=== PATIENT | female | born 1950 | race American Indian/Alaskan Native ===

== ENCOUNTER 2018-11-08 12:01 | Inpatient (IN) | payer MEDICARE ==
[2018-11-08 12:07] VITALS: BMI 26.4
[2018-11-08] MEDS ORDERED: Vancomycin 1 gm/NS 200 ml 1 GM/200 ML BAG IVPB STA (12:35)
[2018-11-08] MEDS ORDERED: Clindamycin 300 MG in Sodium Chloride 0.9% 50 ML IVPB STA (12:40)
[2018-11-08] MEDS ORDERED: Dexamethasone 10 MG in Sodium Chloride 0.9% 50 ML IV ONE (12:44)
[2018-11-08 13:07] LABS: BASO # 0.1 K/uL (0.0-0.2); BASO % 1.1 % (0.0-2.0); EOS % 0.1 % (0.0-4.0); HEMOGLOBIN 12.7 g/dL (11.0-16.0); LYMPH # 1.4 K/uL (1.0-4.3); LYMPH % 14.7 % (20.0-40.0); MEAN CELL VOLUME 86.3 fL (81.0-99.0); MEAN CORPUSCULAR HEMOGLOBIN 29.3 pg (27.0-31.0); MEAN CORPUSCULAR HGB CONC 33.9 g/dL (33.0-37.0); MEAN PLATELET VOLUME 8.1 fL (7.2-11.7); MONO # 1.1 K/uL (0.0-0.8); MONO % 11.1 % (0.0-10.0); NEUT # 7.2 K/uL (1.8-7.0); RBC 4.34 Mil/uL (3.80-5.20); RED CELL DISTRIBUTION WIDTH 14.9 % (11.5-14.5); WHITE BLOOD COUNT 9.8 K/uL (4.8-10.8)
[2018-11-08 13:09] LABS: ALB/GLOB RATIO 1.1 (1.0-2.1); ALBUMIN 4.1 g/dL (3.5-5.0); ALT/SGPT < 6 U/L (9-52); AST/SGOT 20 U/L (14-36); BLOOD UREA NITROGEN 12 mg/dL (7-17); CALCIUM 10.2 mg/dl (8.6-10.4); GFR NON-AFRICAN AMERICAN > 60
[2018-11-08 13:11] LABS: VENOUS BLOOD GAS BASE EXCESS 2.1 mmol/L (0.0-2.0); VENOUS BLOOD GAS PCO2 52 mmHg (40-60); VENOUS BLOOD GAS PO2 19 mm/Hg (30-55); VENOUS BLOOD PH 7.35 (7.32-7.43)
[2018-11-08] MEDS ORDERED: Sodium Chloride 0.9% 1,000 ML IV ONE (13:35)
--- NOTE | 2018-11-08 14:04 | C.PDOC ---
History Of Present Illness 68 year old female, who has recently been diagnosed with diabetes, is sent to the ED by [facility] for evaluation of peritonsillar abscess. Patient states she has been having a sore throat for five. At [facility], patient underwent a strep test, which was positive for Strep A. She was also noted to have a deviated uvula and has been sent to the ED for further evaluation. Upon ED arrival, patient is afebrile and has unremarkable vital signs. Patient is also complaining of pain to her left lower jaw. Otherwis,e she denies fever, chills, nausea, vomiting or any other complaints at this time. Time Seen by Provider: 11/08/18 12:31 Chief Complaint (Nursing): ENT Problem History Per: Patient History/Exam Limitations: None Onset/Duration Of Symptoms: Days (5) Current Symptoms Are (Timing): Still Present Past Medical History Reviewed: Historical Data, Nursing Documentation, Vital Signs Vital Signs: Last Vital Signs Temp 100 F H 11/08/18 13:45 Pulse 80 11/08/18 13:45 Resp 18 11/08/18 13:45 BP 121/65 11/08/18 13:45 Pulse Ox 100 11/08/18 13:45 - Medical History PMH: No Chronic Diseases Surgical History: No Surg Hx - [facility] Procedures CUL-DE-SAC OPERATION NEC (02/26/98) INCIS HERNIA REPAIR-GRFT (02/26/98) OTH LYSIS-PERITONEAL ADHES (02/26/98) OTHER APPENDECTOMY (02/26/98) TOTAL ABD HYSTERECTOMY (02/26/98) Family History: States: Unknown Family Hx - Social History Hx Alcohol Use: Yes Hx Substance Use: No - Immunization History Hx Tetanus Toxoid Vaccination: No Hx Influenza Vaccination: No Hx Pneumococcal Vaccination: No Review Of Systems Constitutional: Negative for: Fever, Chills ENT: Positive for: Throat Pain, Other (peritonsillar absces, deviated uvula, left lower jaw pain ) Gastrointestinal: Negative for: Nausea, Vomiting Physical Exam - Physical Exam Appears: Non-toxic, No Acute Distress Skin: Normal Color, Warm, Dry Head: Swelling (significant to left tonillar region ) Oral Mucosa: Moist Throat: Other (deviated uvula, hoarse voice ) Neck: Supple Chest: Symmetrical, No Deformity, No Tenderness Cardiovascular: Rhythm Regular, No Murmur Respiratory: Normal Breath Sounds, No Rales, No Rhonchi, No Wheezing Gastrointestinal/Abdominal: Soft, No Tenderness Extremity: Normal ROM Neurological/Psych: Oriented x3, Normal Speech, Normal Cognition ED Course And Treatment - Laboratory Results Result Diagrams: 11/08/18 12:49 11/08/18 12:49 Lab Results: pO2 19 mm/Hg (30-55) L 11/08/18 13:07 VBG pH 7.35 (7.32-7.43) 11/08/18 13:07 VBG pCO2 52 mmHg (40-60) 11/08/18 13:07 VBG HCO3 24.6 mmol/L 11/08/18 13:07 VBG Total CO2 30.3 mmol/L (22-28) H 11/08/18 13:07 VBG O2 Sat (Calc) 31.7 % (40-65) L 11/08/18 13:07 VBG Base Excess 2.1 mmol/L (0.0-2.0) H 11/08/18 13:07 VBG Potassium 4.4 mmol/L (3.6-5.2) 11/08/18 13:07 Sodium 138.0 mmol/l (132-148) 11/08/18 13:07 Chloride 101.0 mmol/L (98-107) 11/08/18 13:07 Glucose 271 mg/dl (65-105) H 11/08/18 13:07 Lactate 3.2 mmol/L (0.7-2.1) H 11/08/18 13:07 Total Bilirubin 0.8 mg/dL (0.2-1.3) 11/08/18 12:49 AST 20 U/L (14-36) 11/08/18 12:49 ALT < 6 U/L (9-52) L 11/08/18 12:49 Alkaline Phosphatase 89 U/L (38-126) 11/08/18 12:49 Total Protein 8.0 g/dL (6.3-8.3) 11/08/18 12:49 Albumin 4.1 g/dL (3.5-5.0) 11/08/18 12:49 Globulin 3.8 gm/dL (2.2-3.9) 11/08/18 12:49 Albumin/Globulin Ratio 1.1 (1.0-2.1) 11/08/18 12:49 O2 Sat by Pulse Oximetry: 100 - CT Scan/US CT Neck soft tissue Other Rad Studies (CT/US): Read By Radiologist, Radiology Report Reviewed CT/US Interpretation: Date of service: 11/08/2018. PROCEDURE: CT NECK WITH CONTRAST. HISTORY: left peritonsilar abscess. COMPARISON: None available. TECHNIQUE: CT of the neck with intravenous contrast. Coronal and sagittal reformats generated. Intravenous contrast dose: 100 mL Visipaque 320. Radiation dose: Total exam DLP = 541.9 mGy-cm. This CT exam was performed using one or more of the following dose reduction techniques: Automated exposure control, adjustment of the mA and/or kV according to patient size, and/or use of iterative reconstruction technique. FINDINGS: NASOPHARYNX: Asymmetric soft tissue fullness of the left nasopharynx with nonvisualization of the left eustachian tube. No enhancing mucosal lesion appreciated. SUPRAHYOID NECK: Marked fullness of the left palatine tonsil with heterogeneous attenuation but no evidence of discrete abscess. No significant surrounding inflammatory change. Differential diagnosis includes neoplasm or tonsillitis. There is mild displacement of the airway towards the right side as result of this left palatine soft tissue fullness. The lingual tonsils appear unremarkable. There is no abnormality of the adenoidal tonsils. Intrinsic muscles of the tongue are symmetric. The epiglottis is normal in appearance. INFRAHYOID NECK: Unremarkable larynx, hypopharynx, and supraglottic space. Vocal cords intact. MASS: None. GLANDS: Parotid and submandibular glands unremarkable. Normal size thyroid gland, without nodule. LYMPH NODES: Numerous shotty left-sided cervical nodes, particularly along the jugulodigastric chain, without evidence of shila enlargement of lymph nodes. There are few shotty right-sided nodes as well. CERVICAL SPINE: No fracture or focal lesion. VASCULAR STRUCTURES: Unremarkable. OTHER FINDINGS: There is an air-fluid level in left maxillary antrum which may reflect acute sinusitis. There is chronic ethmoid and bilateral maxillary sinusitis. IMPRESSION: Soft tissue fullness of the left palatine tonsil without evidence of abscess. Differential diagnosis includes neoplasm or tonsillitis. Asymmetric shotty left-sided cervical lymphadenopathy. Possible acute left maxillary sinusitis. Chronic ethmoid and bilateral maxillary sinusitis. Soft tissue fullness of left nasopharynx without enhancing mucosal lesion demonstrated. Correlate with direct visual inspection. Medical Decision Making Medical Decision Making: Progress: Bloodwork and CT Neck Soft Tissue ordered and reviewed. Clindamycin IVPB, Vancomycin IVP, Decadron IVP given. Patient with lactate of 3.5, has already received antibiotics Patient does not meet SIRS criteria. IV Fluids given. Case discussed with Dr. Marlow (medicine independent crop consultant), who accepts the patient. Case discussed with medical safety director who will evaluate the patient. Case discussed with Dr. Sampson as consult, and states he will evaluate the patient at bedside. Dr. Sampson eval the patient at bedside. Attempted aspiration of the suspected abscess with no drainage. Disposition Discussed With Dr.: Gabo Marlow Jr. - Disposition Disposition: HOSPITALIZED Disposition Time: 16:44 Condition: GUARDED - POA Present On Arrival: None - Clinical Impression Clinical Impression: Tonsillar mass - Scribe Statement The provider has reviewed the documentation as recorded by the Scribe (Crystal Barney) Provider Attestation: All medical record entries made by the Scribe were at my direction and personally dictated by me. I have reviewed the chart and agree that the record accurately reflects my personal performance of the history, physical exam, medical decision making, and the department course for this patient. I have also personally directed, reviewed, and agree with the discharge instructions and disposition. Decision To Admit - Pt Status Changed To: Hospital Disposition Of: Inpatient - Admit Certification Admit to Inpatient:: After my assessment, the patient will require hospitalization for at least two midnights. This is because of the severity of symptoms shown, intensity of services needed, and/or the medical risk in this patient being treated as an outpatient. - InPatient: Physician Admission Certification: I certify that this patient requires 2 or more midnights of care for the following reason:: tonsillar mass, tonsillitis, possible airway impingement - . Bed Request Type: Regular Admitting Physician: Gabo Marlow Jr. Patient Diagnosis: Tonsillar mass
[2018-11-08] MEDS ORDERED: Iohexol 350mg/ml 100 ML ONE (14:08)
[2018-11-08 15:31] LABS: VENOUS BLOOD GAS BASE EXCESS 3.5 mmol/L (0.0-2.0); VENOUS BLOOD GAS PCO2 47 mmHg (40-60); VENOUS BLOOD GAS PO2 16 mm/Hg (30-55)
--- NOTE | 2018-11-08 16:34 | CT ---
Date of service: 11/08/2018 PROCEDURE: CT NECK WITH CONTRAST HISTORY: left peritonsilar abscess COMPARISON: None available. TECHNIQUE: CT of the neck with intravenous contrast. Coronal and sagittal reformats generated. Intravenous contrast dose: 100 mL Visipaque 320 Radiation dose: Total exam DLP = 541.9 mGy-cm. This CT exam was performed using one or more of the following dose reduction techniques: Automated exposure control, adjustment of the mA and/or kV according to patient size, and/or use of iterative reconstruction technique. FINDINGS: NASOPHARYNX: Asymmetric soft tissue fullness of the left nasopharynx with nonvisualization of the left eustachian tube. No enhancing mucosal lesion appreciated. SUPRAHYOID NECK: Marked fullness of the left palatine tonsil with heterogeneous attenuation but no evidence of discrete abscess. No significant surrounding inflammatory change. Differential diagnosis includes neoplasm or tonsillitis. There is mild displacement of the airway towards the right side as result of this left palatine soft tissue fullness. The lingual tonsils appear unremarkable. There is no abnormality of the adenoidal tonsils. Intrinsic muscles of the tongue are symmetric. The epiglottis is normal in appearance. INFRAHYOID NECK: Unremarkable larynx, hypopharynx, and supraglottic space. Vocal cords intact. MASS: None. GLANDS: Parotid and submandibular glands unremarkable. Normal size thyroid gland, without nodule. LYMPH NODES: Numerous shotty left-sided cervical nodes, particularly along the jugulodigastric chain, without evidence of shila enlargement of lymph nodes. There are few shotty right-sided nodes as well. CERVICAL SPINE: No fracture or focal lesion. VASCULAR STRUCTURES: Unremarkable. OTHER FINDINGS: There is an air-fluid level in left maxillary antrum which may reflect acute sinusitis. There is chronic ethmoid and bilateral maxillary sinusitis. IMPRESSION: Soft tissue fullness of the left palatine tonsil without evidence of abscess. Differential diagnosis includes neoplasm or tonsillitis. Asymmetric shotty left-sided cervical lymphadenopathy. Possible acute left maxillary sinusitis. Chronic ethmoid and bilateral maxillary sinusitis. Soft tissue fullness of left nasopharynx without enhancing mucosal lesion demonstrated. Correlate with direct visual inspection.
[2018-11-08] MEDS ORDERED: Lidocaine 2% w Epi 1:100,000 Inj IJ ONE (17:13)
--- NOTE | 2018-11-08 18:56 | CP.PCM.HP ---
History of Present Illness - History of Present Illness History of Present Illness: Ms. Villagomez is a 68 year old female with a PMHx of Diabetes and Right Hip Arthritis who was sent by Urgent care for evaluation of possible peritonsillar abscess. Patient states she had a sore throat which prompted her to go to urgent care. Rapid Strep returned positive and she was sent to the E.R for evaluation. She has been only using salt water and mucinex to treat her sore throat. Associated symptoms include Subjective Fever, Tinnitus, SOB, Body Aches, productive cough and chest congestion. Patient was evaluated by ENT in the ED and and I & D was attempted but there was no abscess to drain. ROS POSITIVES: Sore throat, Odynophagia, Dysphagia, Subjective Fever, Tinnitus, SOB, Body Aches, productive cough, chest congestion, sick contacts. NEGATIVES: Chills, Headache, Chest pain, palpitations, nausea, vomiting, abdominal pain, changes in bowel habits, urinary symptoms. PMHx: Diabetes, Righ Hip Arthritis PSHx: x 4, Hysterectomy, Unspecified Hernia Repair Allergies: NKDA SocialHx: Denies tobacco, Social EtoH Use, Denies illicit drug use Hos: Denies FamHx: Mom/Brother - Diabetes Meds: Metformin 1000 BID, Lisinopril 2.5 Present on Admission - Present on Admission Any Indicators Present on Admission: No Review of Systems - Review of Systems All systems: reviewed and no additional remarkable complaints except (As per HPI) Review of Systems: As per HPI Past Patient History - Past Social History Smoking Status: Never Smoked - ENDOCRINE/METABOLIC Hx Endocrine Disorders: Yes Hx Diabetes Mellitus Type 2: Yes - PSYCHIATRIC Hx Substance Use: No - SURGICAL HISTORY Hx Surgeries: Yes Hx Section: Yes (x4) Hx Hysterectomy: Yes - ANESTHESIA Hx Anesthesia: Yes Meds Allergies/Adverse Reactions: Allergies Allergy/AdvReac Type Severity Reaction Status Date / Time No Known Allergies Allergy Verified 11/08/18 12:06 Physical Exam - Constitutional Appears: Well, Non-toxic, No Acute Distress - Head Exam Head Exam: ATRAUMATIC, NORMAL INSPECTION, NORMOCEPHALIC - Eye Exam Eye Exam: EOMI, Normal appearance - ENT Exam ENT Exam: Mucous Membranes Moist, TM's Normal Bilaterally. absent: Normal Oropharynx Additional comments: Tonsillar Swelling, ERythema, Deviated Uvula, mild exudate, mild hoarsness. - Neck Exam Neck exam: Positive for: Lymphadenopathy (Anterior, Tender on Left SIde. ) - Respiratory Exam Respiratory Exam: Clear to Auscultation Bilateral. absent: Accessory Muscle Use - Cardiovascular Exam Cardiovascular Exam: RRR, +S1, +S2. absent: JVD - GI/Abdominal Exam GI & Abdominal Exam: Normal Bowel Sounds, Soft. absent: Tenderness - Extremities Exam Extremities exam: Positive for: normal capillary refill. Negative for: pedal edema - Neurological Exam Neurological exam: Alert, Oriented x3 - Psychiatric Exam Psychiatric exam: Normal Affect, Normal Mood Results - Vital Signs Recent Vital Signs: Last Vital Signs Temp 99.1 F 11/08/18 18:13 Pulse 85 11/08/18 18:13 Resp 16 11/08/18 18:13 BP 164/93 H 11/08/18 18:13 Pulse Ox 96 11/08/18 18:13 - Labs Result Diagrams: 11/08/18 12:49 11/08/18 12:49 Labs: Laboratory Results - last 24 hr 11/08/18 11/08/18 11/08/18 12:49 12:49 13:07 WBC 9.8 RBC 4.34 Hgb 12.7 Hct 37.5 MCV 86.3 MCH 29.3 MCHC 33.9 RDW 14.9 H Plt Count 278 MPV 8.1 Neut % (Auto) 73.0 Lymph % (Auto) 14.7 L Baldwin % (Auto) 11.1 H Eos % (Auto) 0.1 Baso % (Auto) 1.1 Neut # (Auto) 7.2 H Lymph # (Auto) 1.4 Baldwin # (Auto) 1.1 H Eos # (Auto) 0.0 Baso # (Auto) 0.1 pO2 19 L VBG pH 7.35 VBG pCO2 52 VBG HCO3 24.6 VBG Total CO2 30.3 H VBG O2 Sat (Calc) 31.7 L VBG Base Excess 2.1 H VBG Potassium 4.4 Glucose 271 H Lactate 3.2 H Sodium 136 138.0 Potassium 4.6 Chloride 99 101.0 Carbon Dioxide 29 Anion Gap 13 BUN 12 Creatinine 0.8 Est GFR ( Amer) > 60 Est GFR (Non-Af Amer) > 60 Random Glucose 334 H Calcium 10.2 Total Bilirubin 0.8 AST 20 ALT < 6 L Alkaline Phosphatase 89 Total Protein 8.0 Albumin 4.1 Globulin 3.8 Albumin/Globulin Ratio 1.1 Venous Blood Potassium 4.4 11/08/18 15:25 WBC RBC Hgb Hct MCV MCH MCHC RDW Plt Count MPV Neut % (Auto) Lymph % (Auto) Baldwin % (Auto) Eos % (Auto) Baso % (Auto) Neut # (Auto) Lymph # (Auto) Baldwin # (Auto) Eos # (Auto) Baso # (Auto) pO2 16 L VBG pH 7.40 VBG pCO2 47 VBG HCO3 25.6 VBG Total CO2 30.5 H VBG O2 Sat (Calc) 26.8 L VBG Base Excess 3.5 H VBG Potassium 4.0 Glucose 255 H Lactate 1.5 Sodium 136.0 Potassium Chloride 103.0 Carbon Dioxide Anion Gap BUN Creatinine Est GFR ( Amer) Est GFR (Non-Af Amer) Random Glucose Calcium Total Bilirubin AST ALT Alkaline Phosphatase Total Protein Albumin Globulin Albumin/Globulin Ratio Venous Blood Potassium 4.0 Assessment & Plan - Assessment and Plan (Free Text) Assessment: 68 year old female with a PMHx of Diabetes and Right Hip Arthritis admitted for evaluation and treatment of strep throat and possible peritonsillar abscess. Plan: Strep Throat CT Neck Soft Tissue(Adm): Soft tissue fullness of the left palatine tonsil without evidence of abscess. Differential diagnosis includes neoplasm or tonsillitis. Asymmetric shotty left-sided cervical lymphadenopathy. Possible acute left maxillary sinusitis. Chronic ethmoid and bilateral maxillary sinusitis. Soft tissue fullness of left nasopharynx without enhancing mucosal lesion demonstrated. Correlate with direct visual inspection. Consults: ENT (Dr. Sampson), Recs Appreciated Throat Culture: Ordered and PENDING> Mgmt: Clindamycin 300mg IVP Q6H Vancomycin 1gram IVP Q6H. Robitussin PRN for Cough Tylenol PRN for Fever. Diabetes (Chronic) Mgmt: Metformin 1000mg BID Lisinopril 2.5mg PO Daily Elevated BP Amlodipine 5 PO ONce Patient does not have a history of hypertension. Her lisinopril is for kidney protection Monitor BP Proph SCDs Lovenox if patient states for more than 24 hours NS # 100mls/hr Modified Dysphagia Diet Patient discussed with Attending Dr. Marlow. Garcia Oswald, PGY-2
[2018-11-08 19:20] VITALS: RESP 20
[2018-11-08] MEDS ORDERED: guaiFENesin DM 200 mg-20 mg/10 ml UD PO PRN (19:31)
[2018-11-08] MEDS: Clindamycin 300 MG in Sodium Chloride 0.9% 50 ML IVPB SCH (19:47)
[2018-11-08] MEDS: Sodium Chloride 0.9% 1,000 ML IV SCH (19:47)
[2018-11-08] MEDS ORDERED: Dextrose 50% SYRINGE Inj (50 ml) IV PRN (21:19)
[2018-11-08] MEDS ORDERED: Glucagon Recombinant 1 mg Inj IM PRN (21:19)
[2018-11-08] MEDS: (Novolog) Insulin Aspart, Recombinant 100 u/ml 10 ml vial SC SCH (21:40)
[2018-11-09] MEDS: Clindamycin 300 MG in Sodium Chloride 0.9% 50 ML IVPB SCH ×4 (00:30→18:07)
--- NOTE | 2018-11-09 01:58 | OP ---
PROCEDURE DATE: 11/08/2018 PREOPERATIVE DIAGNOSIS: Possible peritonsillar abscess. POSTOPERATIVE DIAGNOSIS: Possible peritonsillar abscess. PROCEDURE: Left peritonsillar exploration. SIGNIFICANT FINDINGS: No pus noted. DESCRIPTION OF PROCEDURE: The patient was placed in a seated position. The left peritonsillar area was injected with lidocaine with epinephrine. An incision was made to the left peritonsillar area using a #11 blade, clamped, dissection was done. The left peritonsillar area was opened up; however, no pus was noted. Bleeding was controlled with time. The patient tolerated the procedure well. Harpreet Sampson MD
[2018-11-09 07:32] LABS: BASO # 0.1 K/uL (0.0-0.2); BASO % 0.5 % (0.0-2.0); HEMOGLOBIN 11.7 g/dL (11.0-16.0); LYMPH # 1.4 K/uL (1.0-4.3); LYMPH % 10.8 % (20.0-40.0); MEAN CELL VOLUME 86.2 fL (81.0-99.0); MEAN CORPUSCULAR HEMOGLOBIN 29.2 pg (27.0-31.0); MEAN CORPUSCULAR HGB CONC 33.9 g/dL (33.0-37.0); MEAN PLATELET VOLUME 8.3 fL (7.2-11.7); MONO # 1.1 K/uL (0.0-0.8); MONO % 8.2 % (0.0-10.0); NEUT # 10.4 K/uL (1.8-7.0); NEUT % 80.5 % (50.0-75.0); NRBC % 0.1 % (0.0-2.0); RBC 3.99 Mil/uL (3.80-5.20); RED CELL DISTRIBUTION WIDTH 14.9 % (11.5-14.5); WHITE BLOOD COUNT 12.9 K/uL (4.8-10.8)
[2018-11-09] MEDS: (Novolog) Insulin Aspart, Recombinant 100 u/ml 10 ml vial SC SCH ×4 (08:31→21:47)
[2018-11-09 08:56] LABS: ALB/GLOB RATIO 1.1 (1.0-2.1); ALBUMIN 4.1 g/dL (3.5-5.0); ALT/SGPT < 6 U/L (9-52); AST/SGOT 19 U/L (14-36); BLOOD UREA NITROGEN 11 mg/dL (7-17); CALCIUM 9.5 mg/dl (8.6-10.4); GFR NON-AFRICAN AMERICAN > 60
[2018-11-09] MEDS: Sodium Chloride 0.9% 1,000 ML IV SCH ×3 (10:34→22:15)
[2018-11-09] MEDS: Vancomycin 1 gm/NS 200 ml 1 GM/200 ML BAG IVPB SCH (10:35)
--- NOTE | 2018-11-09 14:15 | CP.PCM.PN ---
Subjective - Date & Time of Evaluation Date of Evaluation: 11/09/18 Time of Evaluation: 14:14 - Subjective Subjective: decreased throat pain on the right oc/op: erythema and edema of right peritonsillar area, incision healing well a/p: peritonsillar cellulitis cont iv abx Objective - Vital Signs/Intake and Output Vital Signs (last 24 hours): Temp Pulse Resp BP Pulse Ox 99.8 F H 98 H 20 134/73 97 11/09/18 08:30 11/09/18 08:30 11/09/18 08:30 11/09/18 08:30 11/09/18 08:30 Intake and Output: 11/09/18 11/09/18 06:59 18:59 Intake Total 600 1100 Balance 600 1100 - Medications Medications: Current Medications Acetaminophen (Tylenol 325mg Tab) 650 mg PO Q6 PRN PRN Reason: Fever >100.4 F Last Admin: 11/09/18 10:33 Dose: 650 mg Dextrose (Dextrose 50% Inj) 0 ml IV STAT PRN; Protocol PRN Reason: Hypoglycemia Protocol Dextrose (Glutose 15) 0 gm PO ONCE PRN; Protocol PRN Reason: Hypoglycemia Protocol Docusate Sodium (Colace) 100 mg PO BID SIL Last Admin: 11/09/18 12:06 Dose: 100 mg Glucagon (Glucagen Diagnostic Kit) 0 mg IM STAT PRN; Protocol PRN Reason: Hypoglycemia Protocol Guaifenesin/Dextromethorphan (Robitussin Dm) 10 ml PO Q4H PRN PRN Reason: Cough and congestion Heparin Sodium (Porcine) (Heparin) 5,000 units SC Q12 SIL Last Admin: 11/09/18 10:34 Dose: 5,000 units Clindamycin Phosphate 300 mg/ (Sodium Chloride) 52 mls @ 104 mls/hr IVPB Q6H SIL; Protocol Last Admin: 11/09/18 12:02 Dose: 104 mls/hr Vancomycin/Sodium Chloride (Vancomycin 1 Gm/Ns 200 Ml) 1 gm in 200 mls @ 133 mls/hr IVPB DAILY SIL; Protocol Stop: 11/14/18 10:01 Last Admin: 11/09/18 10:35 Dose: 133 mls/hr Sodium Chloride (Sodium Chloride 0.9%) 1,000 mls @ 100 mls/hr IV .Q10H SIL Last Admin: 11/09/18 10:34 Dose: 100 mls/hr Dextrose (Dextrose 5% In Water 1000 Ml) 1,000 mls @ 0 mls/hr IV .Q0M PRN; Protocol PRN Reason: Hypoglycemia Protocol Insulin Aspart (Novolog) 0 unit SC ACHS [facility]; Protocol Lisinopril (Zestril) 2.5 mg PO DAILY [facility] Last Admin: 11/09/18 10:37 Dose: 2.5 mg Metformin HCl (Glucophage) 1,000 mg PO BID [facility] Last Admin: 11/09/18 10:33 Dose: 1,000 mg - Labs Labs: 11/09/18 07:20 11/09/18 07:20
--- NOTE | 2018-11-09 18:01 | CP.PCM.PN ---
Subjective - Date & Time of Evaluation Date of Evaluation: 11/09/18 Time of Evaluation: 18:00 - Subjective Subjective: Medicine Progress Note - Dr Marlow's service Patient seen and examined at bedside. Per nursing no acute events overnight. Patient states that she is feeling better. Able to tolerate breakfast and lunch. Offers no other complaints at this time. Objective - Vital Signs/Intake and Output Vital Signs (last 24 hours): Temp Pulse Resp BP Pulse Ox 98.8 F 89 20 116/68 99 11/09/18 16:00 11/09/18 16:00 11/09/18 16:00 11/09/18 16:00 11/09/18 16:00 Intake and Output: 11/09/18 11/09/18 06:59 18:59 Intake Total 600 2430 Balance 600 2430 - Medications Medications: Current Medications Acetaminophen (Tylenol 325mg Tab) 650 mg PO Q6 PRN PRN Reason: Fever >100.4 F Last Admin: 11/09/18 10:33 Dose: 650 mg Dextrose (Dextrose 50% Inj) 0 ml IV STAT PRN; Protocol PRN Reason: Hypoglycemia Protocol Dextrose (Glutose 15) 0 gm PO ONCE PRN; Protocol PRN Reason: Hypoglycemia Protocol Docusate Sodium (Colace) 100 mg PO BID SIL Last Admin: 11/09/18 12:06 Dose: 100 mg Glucagon (Glucagen Diagnostic Kit) 0 mg IM STAT PRN; Protocol PRN Reason: Hypoglycemia Protocol Guaifenesin/Dextromethorphan (Robitussin Dm) 10 ml PO Q4H PRN PRN Reason: Cough and congestion Heparin Sodium (Porcine) (Heparin) 5,000 units SC Q12 SIL Last Admin: 11/09/18 10:34 Dose: 5,000 units Clindamycin Phosphate 300 mg/ (Sodium Chloride) 52 mls @ 104 mls/hr IVPB Q6H [facility]; Protocol Last Admin: 11/09/18 12:02 Dose: 104 mls/hr Vancomycin/Sodium Chloride (Vancomycin 1 Gm/Ns 200 Ml) 1 gm in 200 mls @ 133 mls/hr IVPB DAILY SIL; Protocol Stop: 11/14/18 10:01 Last Admin: 11/09/18 10:35 Dose: 133 mls/hr Sodium Chloride (Sodium Chloride 0.9%) 1,000 mls @ 100 mls/hr IV .Q10H SIL Last Admin: 11/09/18 10:34 Dose: 100 mls/hr Dextrose (Dextrose 5% In Water 1000 Ml) 1,000 mls @ 0 mls/hr IV .Q0M PRN; Protocol PRN Reason: Hypoglycemia Protocol Insulin Aspart (Novolog) 0 unit SC ACHS [facility]; Protocol Lisinopril (Zestril) 2.5 mg PO DAILY [facility] Last Admin: 11/09/18 10:37 Dose: 2.5 mg Metformin HCl (Glucophage) 1,000 mg PO BID [facility] Last Admin: 11/09/18 10:33 Dose: 1,000 mg - Labs Labs: 11/09/18 07:20 11/09/18 07:20 - Constitutional Appears: Non-toxic, No Acute Distress - Head Exam Head Exam: ATRAUMATIC, NORMAL INSPECTION - Eye Exam Eye Exam: EOMI, Normal appearance - ENT Exam ENT Exam: Mucous Membranes Moist - Neck Exam Neck Exam: Lymphadenopathy - Respiratory Exam Respiratory Exam: Clear to Ausculation Bilateral, NORMAL BREATHING PATTERN. absent: Rales, Rhonchi, Wheezes - Cardiovascular Exam Cardiovascular Exam: REGULAR RHYTHM, +S1, +S2 - GI/Abdominal Exam GI & Abdominal Exam: Soft. absent: Guarding, Rigid, Tenderness - Back Exam Back Exam: NORMAL INSPECTION - Neurological Exam Neurological Exam: Alert, Awake, Oriented x3 - Psychiatric Exam Psychiatric exam: Normal Affect, Normal Mood - Skin Skin Exam: Dry, Normal Color, Warm Assessment and Plan - Assessment and Plan (Free Text) Assessment: Patient is a 68 year old female with a PMHx of Diabetes and Right Hip Arthritis admitted for evaluation and treatment of strep throat and possible peritonsillar abscess. Plan: Peritonsillar cellulitis -Stable, afebrile -Patient is s/p peritonsillar exploration, no pus noted -Antibiotics: Clindamycin 300mg Q6H IVPB, Vancomycin 1 gm daily -Throat cultures are negative, blood cultures showing no growth x 24 hours -Robitussin PRN for Cough, Tylenol PRN for Fever. -ENT consulted, Dr Sampson, help appreciated -CT Neck Soft Tissue(Adm): Soft tissue fullness of the left palatine tonsil without evidence of abscess. Differential diagnosis includes neoplasm or tonsillitis. Asymmetric shotty left-sided cervical lymphadenopathy. Possible acute left maxillary sinusitis. Chronic ethmoid and bilateral maxillary sinusitis. Soft tissue fullness of left nasopharynx without enhancing mucosal lesion demonstrated. Correlate with direct visual inspection. (see full report Diabetes Mellitus (Chronic) -Metformin 1000mg BID -Lisinopril 2.5mg PO Daily -ISS and accuchecks ACHS -Hypoglycemia protocal Elevated Blood Pressure -Was given Amlodipine 5 PO ONce -Patient does not have a history of hypertension. Her lisinopril is for kidney protection -Monitor BP GI/DVT ppx -Heparin 5000 Q12H Plan discussed with Dr Ele Arellano DO PGY-2
[2018-11-10] MEDS: Clindamycin 300 MG in Sodium Chloride 0.9% 50 ML IVPB SCH ×3 (00:18→12:29)
[2018-11-10] MEDS: Sodium Chloride 0.9% 1,000 ML IV SCH ×2 (02:32→13:52)
[2018-11-10 08:05] LABS: BASO # 0.1 K/uL (0.0-0.2); BASO % 0.6 % (0.0-2.0); EOS % 0.1 % (0.0-4.0); HEMOGLOBIN 11.1 g/dL (11.0-16.0); LYMPH # 2.2 K/uL (1.0-4.3); LYMPH % 21.1 % (20.0-40.0); MEAN CELL VOLUME 86.5 fL (81.0-99.0); MEAN CORPUSCULAR HEMOGLOBIN 29.9 pg (27.0-31.0); MEAN CORPUSCULAR HGB CONC 34.5 g/dL (33.0-37.0); MEAN PLATELET VOLUME 8.2 fL (7.2-11.7); MONO # 0.9 K/uL (0.0-0.8); MONO % 8.5 % (0.0-10.0); NEUT # 7.2 K/uL (1.8-7.0); NEUT % 69.7 % (50.0-75.0); RBC 3.71 Mil/uL (3.80-5.20); RED CELL DISTRIBUTION WIDTH 14.7 % (11.5-14.5); WHITE BLOOD COUNT 10.3 K/uL (4.8-10.8)
[2018-11-10] MEDS: (Novolog) Insulin Aspart, Recombinant 100 u/ml 10 ml vial SC SCH ×2 (08:15→12:24)
[2018-11-10 08:26] LABS: ALBUMIN 3.7 g/dL (3.5-5.0); ALT/SGPT 11 U/L (9-52); AST/SGOT 26 U/L (14-36); BLOOD UREA NITROGEN 7 mg/dL (7-17); CALCIUM 9.3 mg/dl (8.6-10.4); GFR NON-AFRICAN AMERICAN > 60
[2018-11-10] MEDS: Vancomycin 1 gm/NS 200 ml 1 GM/200 ML BAG IVPB SCH (09:46)
--- NOTE | 2018-11-10 11:19 | CP.PCM.PN ---
Subjective - Date & Time of Evaluation Date of Evaluation: 11/10/18 Time of Evaluation: 11:18 - Subjective Subjective: Medicine Progress Note - Dr Marlow's service Patient seen and examined at bedside. Per nursing, patient has a 100.8 fever last night. Objective - Vital Signs/Intake and Output Vital Signs (last 24 hours): Temp Pulse Resp BP Pulse Ox 99.0 F 95 H 20 127/61 97 11/10/18 01:17 11/10/18 00:00 11/10/18 00:00 11/10/18 00:00 11/10/18 00:00 Intake and Output: 11/10/18 11/10/18 06:59 18:59 Intake Total 1400 1040 Balance 1400 1040 - Medications Medications: Current Medications Acetaminophen (Tylenol 325mg Tab) 650 mg PO Q6 PRN PRN Reason: Fever >100.4 F Last Admin: 11/10/18 00:17 Dose: 650 mg Dextrose (Dextrose 50% Inj) 0 ml IV STAT PRN; Protocol PRN Reason: Hypoglycemia Protocol Dextrose (Glutose 15) 0 gm PO ONCE PRN; Protocol PRN Reason: Hypoglycemia Protocol Docusate Sodium (Colace) 100 mg PO BID SIL Last Admin: 11/10/18 09:42 Dose: 100 mg Glucagon (Glucagen Diagnostic Kit) 0 mg IM STAT PRN; Protocol PRN Reason: Hypoglycemia Protocol Guaifenesin/Dextromethorphan (Robitussin Dm) 10 ml PO Q4H PRN PRN Reason: Cough and congestion Heparin Sodium (Porcine) (Heparin) 5,000 units SC Q12 SIL Last Admin: 11/10/18 09:43 Dose: 5,000 units Clindamycin Phosphate 300 mg/ (Sodium Chloride) 52 mls @ 104 mls/hr IVPB Q6H SIL; Protocol Last Admin: 11/10/18 06:06 Dose: 104 mls/hr Vancomycin/Sodium Chloride (Vancomycin 1 Gm/Ns 200 Ml) 1 gm in 200 mls @ 133 mls/hr IVPB DAILY SIL; Protocol Stop: 11/14/18 10:01 Last Admin: 11/10/18 09:46 Dose: 133 mls/hr Sodium Chloride (Sodium Chloride 0.9%) 1,000 mls @ 100 mls/hr IV .Q10H SIL Last Admin: 11/10/18 02:32 Dose: Not Given Dextrose (Dextrose 5% In Water 1000 Ml) 1,000 mls @ 0 mls/hr IV .Q0M PRN; Protocol PRN Reason: Hypoglycemia Protocol Insulin Aspart (Novolog) 0 unit SC ACHS [facility]; Protocol Last Admin: 11/10/18 08:15 Dose: 4 units Lisinopril (Zestril) 2.5 mg PO DAILY [facility] Last Admin: 11/10/18 09:43 Dose: 2.5 mg Metformin HCl (Glucophage) 1,000 mg PO BID [facility] Last Admin: 11/10/18 09:42 Dose: 1,000 mg - Labs Labs: 11/10/18 07:50 11/10/18 07:50
--- NOTE | 2018-11-10 14:23 | CP.PCM.DIS ---
Provider - Provider Date of Admission: 11/08/18 16:47 Attending physician: Gabo Marlow Jr, MD Consults: 11/08/18 16:48 Otolaryngology Consult Stat Consulting Provider: Harpreet Sampson Consulting Physician: Harpreet Sampson Reason for Consult: tonsillar mass, tonsillitis, possible airway impingement Time Spent in preparation of Discharge (in minutes): 31 Hospital Course - Lab Results Lab Results: Micro Results 11/08/18 12:55 Blood Blood Culture - Preliminary NO GROWTH AFTER 48 HOURS 11/08/18 12:35 Blood Blood Culture - Preliminary NO GROWTH AFTER 24 HOURS 11/08/18 20:17 Throat Group A Strep Throat Culture - Final NO BETA STREP GROUP A ISOLATED. Most Recent Lab Values WBC 10.3 K/uL (4.8-10.8) 11/10/18 07:50 RBC 3.71 Mil/uL (3.80-5.20) L 11/10/18 07:50 Hgb 11.1 g/dL (11.0-16.0) 11/10/18 07:50 Hct 32.1 % (34.0-47.0) L 11/10/18 07:50 MCV 86.5 fL (81.0-99.0) 11/10/18 07:50 MCH 29.9 pg (27.0-31.0) 11/10/18 07:50 MCHC 34.5 g/dL (33.0-37.0) 11/10/18 07:50 RDW 14.7 % (11.5-14.5) H 11/10/18 07:50 Plt Count 278 K/uL (130-400) 11/10/18 07:50 MPV 8.2 fL (7.2-11.7) 11/10/18 07:50 Neut % (Auto) 69.7 % (50.0-75.0) 11/10/18 07:50 Lymph % (Auto) 21.1 % (20.0-40.0) 11/10/18 07:50 [place] % (Auto) 8.5 % (0.0-10.0) 11/10/18 07:50 Eos % (Auto) 0.1 % (0.0-4.0) 11/10/18 07:50 Baso % (Auto) 0.6 % (0.0-2.0) 11/10/18 07:50 Neut # (Auto) 7.2 K/uL (1.8-7.0) H 11/10/18 07:50 Lymph # (Auto) 2.2 K/uL (1.0-4.3) 11/10/18 07:50 [place] # (Auto) 0.9 K/uL (0.0-0.8) H 11/10/18 07:50 Eos # (Auto) 0.0 K/uL (0.0-0.7) 11/10/18 07:50 Baso # (Auto) 0.1 K/uL (0.0-0.2) 11/10/18 07:50 pO2 16 mm/Hg (30-55) L 11/08/18 15:25 VBG pH 7.40 (7.32-7.43) 11/08/18 15:25 VBG pCO2 47 mmHg (40-60) 11/08/18 15:25 VBG HCO3 25.6 mmol/L 11/08/18 15:25 VBG Total CO2 30.5 mmol/L (22-28) H 11/08/18 15:25 VBG O2 Sat (Calc) 26.8 % (40-65) L 11/08/18 15:25 VBG Base Excess 3.5 mmol/L (0.0-2.0) H 11/08/18 15:25 VBG Potassium 4.0 mmol/L (3.6-5.2) 11/08/18 15:25 Sodium 136.0 mmol/l (132-148) 11/08/18 15:25 Chloride 103.0 mmol/L (98-107) 11/08/18 15:25 Glucose 255 mg/dl (65-105) H 11/08/18 15:25 Lactate 1.5 mmol/L (0.7-2.1) 11/08/18 15:25 Sodium 137 mmol/L (132-148) 11/10/18 07:50 Potassium 4.2 mmol/L (3.6-5.2) 11/10/18 07:50 Chloride 102 mmol/L (98-107) 11/10/18 07:50 Carbon Dioxide 29 mmol/L (22-30) 11/10/18 07:50 Anion Gap 9 (10-20) L 11/10/18 07:50 BUN 7 mg/dL (7-17) 11/10/18 07:50 Creatinine 0.7 mg/dL (0.7-1.2) 11/10/18 07:50 Est GFR ( Amer) > 60 11/10/18 07:50 Est GFR (Non-Af Amer) > 60 11/10/18 07:50 POC Glucose (mg/dL) 130 mg/dL (65-110) H 11/10/18 11:11 Random Glucose 213 mg/dL (65-105) H D 11/10/18 07:50 Calcium 9.3 mg/dl (8.6-10.4) 11/10/18 07:50 Phosphorus 3.6 mg/dL (2.5-4.5) 11/09/18 07:20 Magnesium 1.9 mg/dL (1.6-2.3) 11/09/18 07:20 Total Bilirubin 0.7 mg/dL (0.2-1.3) 11/10/18 07:50 AST 26 U/L (14-36) 11/10/18 07:50 ALT 11 U/L (9-52) 11/10/18 07:50 Alkaline Phosphatase 83 U/L (38-126) 11/10/18 07:50 Total Protein 7.3 g/dL (6.3-8.3) 11/10/18 07:50 Albumin 3.7 g/dL (3.5-5.0) 11/10/18 07:50 Globulin 3.6 gm/dL (2.2-3.9) 11/10/18 07:50 Albumin/Globulin Ratio 1.0 (1.0-2.1) 11/10/18 07:50 Venous Blood Potassium 4.0 mmol/L (3.6-5.2) 11/08/18 15:25 Influenza Typ A,B (EIA) Negative for flu a/b (NEGATIVE) 11/08/18 20:17 - Hospital Course Hospital Course: History of Present Illness: Ms. Villagomez is a 68 year old female with a PMHx of Diabetes and Right Hip Arthritis who was sent by Urgent care for evaluation of possible peritonsillar abscess. Patient states she had a sore throat which prompted her to go to urgent care. Rapid Strep returned positive and she was sent to the E.R for evaluation. She has been only using salt water and mucinex to treat her sore throat. Associated symptoms include Subjective Fever, Tinnitus, SOB, Body Aches, productive cough and chest congestion. Patient was evaluated by ENT in the ED and and I & D was attempted but there was no abscess to drain. Hospital Course: Patient was admitted for possible peritonsillar abscess. Soft tissue neck CT showed Soft tissue fullness of the left palatine tonsil without evidence of abscess. Differential diagnosis includes neoplasm or tonsillitis. Asymmetric shotty left-sided cervical lymphadenopathy. Possible acute left maxillary sinusitis. Chronic ethmoid and bilateral maxillary sinusitis. Soft tissue fullness of left nasopharynx without enhancing mucosal lesion demonstrated. Correlate with direct visual inspection. (see full report). Patient was seen by ENT and underwent peritonsillar exploration, no pus was noted. She was started on IV clindaymycin and IV vancomycin. Thorat culture was negative and blood cultures were negative x 48 hours. Leukocytosis resolved. . On day of discharge patient was doing well. She was tolerating her diet and offered no complaints. Patient medically stable for discharge home per ENT. We discharged her home with PO clindamycin x 7 days. Patient to follow up with PMD and Dr Sampson outpatient. All questions and concerns were addressed. Discharge Diagnoses: Peritonsillar cellulitis Diabetes Mellitus Discharge Medications: Clindamycin 300mg Q8H x 7 days Discharge Exam - Additional Findings Additional findings: - Constitutional Appears: Non-toxic, No Acute Distress - Head Exam Head Exam: ATRAUMATIC, NORMAL INSPECTION - Eye Exam Eye Exam: EOMI, Normal appearance - ENT Exam ENT Exam: Mucous Membranes Moist - Neck Exam Neck Exam: Lymphadenopathy - Respiratory Exam Respiratory Exam: Clear to Ausculation Bilateral, NORMAL BREATHING PATTERN. absent: Rales, Rhonchi, Wheezes - Cardiovascular Exam Cardiovascular Exam: REGULAR RHYTHM, +S1, +S2 - GI/Abdominal Exam GI & Abdominal Exam: Soft. absent: Guarding, Rigid, Tenderness - Back Exam Back Exam: NORMAL INSPECTION - Neurological Exam Neurological Exam: Alert, Awake, Oriented x3 - Psychiatric Exam Psychiatric exam: Normal Affect, Normal Mood - Skin Skin Exam: Dry, Normal Color, Warm Discharge Plan - Discharge Medications Prescriptions: Clindamycin [Cleocin] 300 mg PO Q8H #21 cap - Follow Up Plan Condition: GUARDED Disposition: HOME/ ROUTINE Additional Instructions: Patient is cleared for discharge home Please continue GI soft diet Continue antibiotics as prescribed Please follow up with ENT and PMD upon discharge If symptoms worsen, please return to the emergency department Referrals: Harpreet Sampson MD [Staff Provider] -
[2018-11-10 14:26] VITALS: BP 130/70; PULSE 85; TEMP 98.2; O2SAT 98
== END 2018-11-10 16:15 | disposition home or self-care (01) | DRG 153 ==
LOC: C.ER 12:01 → C.9E 16:47 → C.3T 17:37
PROVIDERS: ADMIT Internal Medicine; ATTEND Internal Medicine
PROC: 0WJ30ZZ Inspection of Oral Cavity and Throat, Open Approach (ICD-10-PCS; principal; 2018-11-08)
DX: J36 Peritonsillar abscess (principal); R59.0 Localized enlarged lymph nodes; J32.0 Chronic maxillary sinusitis; J32.2 Chronic ethmoidal sinusitis; E11.9 Type 2 diabetes mellitus without complications; M16.11 Unilateral primary osteoarthritis, right hip; D72.829 Elevated white blood cell count, unspecified